=== PATIENT | male | born 1955 | race Two or more races ===

== ENCOUNTER 2022-07-28 08:25 | Emergency (ER) | payer OTHER ==
[~2022-07-28] VITALS: Ht 175.3 cm; Wt 72.6 kg
[2022-07-28] MEDS ORDERED: COZAAR50 MG PO (08:41)
[2022-07-28] MEDS ORDERED: CARVEDILOL6.25 M1 PO (08:42)
[2022-07-28] MEDS ORDERED: ADULT LOW DOSE81 M1 PO (08:42)
[2022-07-28] MEDS ORDERED: XIGDUO XR 10 M1 EAC1 PO (08:43)
[2022-07-28] MEDS ORDERED: PRAVASTATIN SOD40 MG PO (08:43)
[2022-07-28] MEDS ORDERED: TAMS0.4C PO (08:44)
== END 2022-07-28 13:50 | disposition home or self-care (01) ==
LOC: ER 08:25
DX: K59.00 Constipation, unspecified (principal); Z91.018 Allergy to other foods; E11.9 Type 2 diabetes mellitus without complications; Z79.84 Long term (current) use of oral hypoglycemic drugs